=== PATIENT | female | born 1985 | race Caucasian/White ===

== ENCOUNTER 2016-08-28 17:21 | Emergency (ER) | payer BC ==
[~2016-08-28 17:21] MED LIST: DAILY VITAMIN1 EAC5 PO; NORCO 5-325 TA1 EACH PO
[2016-08-28] MEDS ORDERED: TYLENOL325 M2 PO (19:20)
[2016-08-28] MEDS ORDERED: IBUPROFEN200 M2 PO (19:20)
[2016-08-28] MEDS ORDERED: BAYER (19:20)
== END 2016-08-28 20:35 ==
LOC: EDMED 17:21
DX: R51 Headache (principal); R11.0 Nausea; M06.9 Rheumatoid arthritis, unspecified; Z91.040 Latex allergy status; F17.200 Nicotine dependence, unspecified, uncomplicated
CPT/HCPCS: J0780; J1200; J1885; J7030